=== PATIENT | female | born 1990 | race Caucasian/White ===

== ENCOUNTER 2021-10-08 07:11 | Outpatient (CLI) | payer BC, SELFPAY ==
--- NOTE | 2021-10-08 07:15 | CRLHL7_ITS ---
For Patients: As a result of the Century Cures Act, medical imaging exams and procedure reports are released immediately into your electronic medical record. You may view this report before your referring provider. If you have questions, please contact your health care provider. INDICATION: Evaluate anatomy. COMPARISON: 08/02/2021 TECHNIQUE: Real time flores scale imaging of the fetus was performed as well as color Doppler analysis of the umbilical vessels. FINDINGS: Sonographic imaging demonstrates a single living intrauterine gestation. Fetus demonstrates a regular cardiac rate of 149 beats per minute. Fetus has a vertex position. The placenta lies anteriorly. Circumvallate placenta noted inferiorly. The edge of the placenta is located 1.7 cm from the internal cervical os. Amniotic fluid volume appears normal. Single deepest vertical pocket: 4.3 cm. The cervix is closed and measures 4.4 cm in length. The composite ultrasound gestational age is calculated at 21 weeks 0 days with an estimated sonographic due date of 02/18/2022. The estimated weight is 385 grams which lies at the 64th %. The following biometric measurements were obtained: Biparietal diameter: 5.0 cm/21 weeks 0 days 68th% Head circumference: 19.0 cm/21 weeks 2 days 73rd% Abdominal circumference: 16.4 cm/21 weeks 3 days 72nd% Femur length: 3.3 cm/20 weeks 1 day 27th% The HC/AC ratio measures: 1.16 range (1.06-1.25) On anatomic survey, there is a normal appearance of the cerebral ventricles, cavum septi pellucidi, cisterna magna and cerebellum. Incomplete visualization of the nose, lips and nasal bone due to position. The cervical, thoracic and lumbar spine are well visualized and appear normal. Incomplete visualization of the four-chamber heart view and the left and right ventricular outflow tracts due to position. The diaphragm and stomach appear normal. The kidneys and bladder also appear normal. There is a normal three-vessel cord and cord insertion site. The four extremities appear normal. IMPRESSION: Incomplete visualization of the heart, nose, lips and nasal bone due to position. Short-term follow-up recommended. Anterior placenta with circumvallate morphology inferiorly. Placenta is low lying with the edge of the placenta 1.7 cm from the internal cervical os. Sonographic gestational age 21 weeks 0 days and sonographic due date of 02/18/2022. Estimated weight 64th percentile. Dictated by Guanakito Dunn MD @ 10/08/2021 9:11:58 AM (Electronically Signed)
== END 2021-10-08 07:12 | disposition home or self-care (01) ==
LOC: US 07:13
PROVIDERS: Visit Provider Advanced Practice Midwife
DX: Z34.92 Encounter for supervision of normal pregnancy, unspecified, second trimester (principal); O44.42 Low lying placenta NOS or without hemorrhage, second trimester; O35.8XX0 Maternal care for other (suspected) fetal abnormality and damage, not applicable or unspecified; Z3A.21 21 weeks gestation of pregnancy
CPT/HCPCS: 76805; 76817

== ENCOUNTER 2021-10-22 07:15 | Outpatient (CLI) | payer BC, SELFPAY ==
--- NOTE | 2021-10-22 07:15 | US_ITS ---
Final Report Patient: DINO LEMOS Facility:?[facility] Patient ID:?[id number] Site Patient ID:?[id number] Site :?[id number] Study:?US OB Pelvis -10/22/2021 8:13:00 AM Ordering Physician:Lucas Lundy Final Report: INDICATION: Follow-up views on FAS. TECHNIQUE: Ultrasound OB pelvis with transabdominal ultrasound. Real-time flores-scale imaging of the fetus was performed without stress testing. COMPARISON: Ultrasound 10/08/2021. FINDINGS: Sonographic imaging demonstrates a single living intrauterine gestation. Fetus demonstrates a regular cardiac rate of 144 beats per minute. Fetus has a vertex orientation. Amniotic fluid volume is normal, single deepest pocket measuring 3.8 cm. Placenta is anterior with margin 4.2 cm from the internal os. Heart, nose/lips, and profile views are within normal limits. IMPRESSION: heart, nose/lips, and profile views are within normal limits. Dictated by Hardeep Montesinos MD @ 10/22/2021 8:39:59 AM (Electronic Signature)
== END 2021-10-22 07:16 | disposition home or self-care (01) ==
PROVIDERS: Visit Provider Obstetrics & Gynecology
DX: Z34.90 Encounter for supervision of normal pregnancy, unspecified, unspecified trimester (principal)
CPT/HCPCS: 76816

== ENCOUNTER 2021-12-05 08:43 | Outpatient (CLI) | payer BC, SELFPAY ==
[2021-12-07 17:33] LABS: Rapid Plasma Reagin (RPR) Non Reactive (Non Reactive)
== END 2021-12-05 08:44 | disposition home or self-care (01) ==
LOC: NFLDREF 14:36
PROVIDERS: Visit Provider Obstetrics & Gynecology
DX: Z34.93 Encounter for supervision of normal pregnancy, unspecified, third trimester (principal); Z3A.28 28 weeks gestation of pregnancy
CPT/HCPCS: 86592

== ENCOUNTER 2021-12-28 08:14 | Outpatient (CLI) | payer BC, SELFPAY ==
--- NOTE | 2021-12-28 08:15 | CRLHL7_ITS ---
For Patients: As a result of the Century Cures Act, medical imaging exams and procedure reports are released immediately into your electronic medical record. You may view this report before your referring provider. If you have questions, please contact your health care provider. INDICATION: Third trimester scan, evaluate growth. Gestational diabetes. COMPARISON: 10/08/2021 TECHNIQUE: Real time flores scale imaging of the fetus was performed. FINDINGS: Sonographic imaging demonstrates a single living intrauterine gestation. Fetus demonstrates a regular cardiac rate of 148 beats per minute. Fetus has a vertex position. The placenta lies anteriorly. Amniotic fluid volume appears normal and there is a single deepest vertical pocket: 5.1 cm. The estimated weight is 1883gm which lies at the 35th %. On the prior OB ultrasound exam dated 10/08/2021 the estimated weight was at the 64th%. BPD 92nd percentile. HC 80th percentile. AC 26th percentile. FL 25th percentile. The HC/AC ratio measures 1.14 range (0.96-1.11). IMPRESSION: Sonographic gestational age 33 weeks 0 days and sonographic due date of 02/15/2022. Sonographic age is 6 days ahead of the clinical age. Estimated weight 35th percentile. Abdominal circumference 26th percentile. Dictated by Guanakito Dunn MD @ 12/28/2021 11:14:03 AM (Electronically Signed)
== END 2021-12-28 08:15 | disposition home or self-care (01) ==
LOC: US 08:15
PROVIDERS: Visit Provider Obstetrics & Gynecology
DX: O24.419 Gestational diabetes mellitus in pregnancy, unspecified control (principal); Z3A.32 32 weeks gestation of pregnancy
CPT/HCPCS: 76816

== ENCOUNTER 2022-01-24 09:47 | Outpatient (CLI) | payer BC, SELFPAY ==
[2022-01-25 10:34] LABS: Strep B DNA Probe NEGATIVE (Negative)
== END 2022-01-24 09:48 | disposition home or self-care (01) ==
LOC: NFLDREF 09:47
PROVIDERS: Visit Provider Obstetrics & Gynecology
DX: O24.419 Gestational diabetes mellitus in pregnancy, unspecified control (principal); Z3A.37 37 weeks gestation of pregnancy
CPT/HCPCS: 76816; 87081; 87653

== ENCOUNTER 2022-02-14 10:54 | Outpatient (CLI) | payer BC, SELFPAY ==
--- NOTE | 2022-02-14 11:15 | CRLHL7_ITS ---
For Patients: As a result of the Cures Act, medical imaging exams and procedure reports are released immediately into your electronic medical record. You may view this report before your referring provider. If you have questions, please contact your health care provider. INDICATION: Obstetrical ultrasound for interval growth. TECHNIQUE: Transabdominal obstetrical ultrasound. COMPARISON: January 14, 2022. FINDINGS: Single living intrauterine in vertex presentation. Anterior placenta. heart rate 123 beats per minute. Amniotic fluid volume normal. Single deepest pocket measurement 2.8 cm. The head measurements were unable to be obtained secondary to a low position. Abdominal circumference 32.2 cm, 37 weeks 1 day, 20th percentile. Femur length 7.2 cm, 36 weeks 5 days, 9th percentile. Estimated weight 3115 g which lies the 23rd percentile. age by ultrasound 37 weeks 0 days with a sonographic due date of March 07, 2022. IMPRESSION: Incomplete biometric indices due to a low position of the head. Limited composite calculated ultrasound measurements indicated 37 week gestation with an estimated due date of March 07, 2022. Dictated by Marco Antonio Valera MD @ 02/14/2022 12:46:14 PM (Electronically Signed)
== END 2022-02-14 10:55 | disposition home or self-care (01) ==
LOC: US 10:54
PROVIDERS: Visit Provider Obstetrics & Gynecology
DX: O36.5930 Maternal care for other known or suspected poor fetal growth, third trimester, not applicable or unspecified (principal); Z3A.36 36 weeks gestation of pregnancy
CPT/HCPCS: 76816

== ENCOUNTER 2022-02-18 04:57 | Inpatient (IN) | payer BC, SELFPAY ==
[2022-02-18] VITALS (13 sets, daily range): BP systolic 104–130; BP diastolic 56–74; PULSE 66–90; RESP 16; TEMP 36.6–37.4; O2SAT 98
--- NOTE | 2022-02-18 05:36 | P.LDBA_ITS ---
Subjective History of Present Illness Date Seen: 02/18/22 Narrative: Patient is being admitted to Labor and Delivery for labor. She is a 31 year old at 38 weeks, 4 days gestation. She presented to center this morning in active labor. OB Problem List: 1. Low lying anterior circumvallate placenta, 1.7 cm from cervical os * Follow-up scan done 10/22/2021, placental edge? 4.2 cm from internal os.?RESO LVED! 2. On anatomy scan 10/08/2021, heart, nose/lips, and profile not well seen. * Follow-up scan done 10/22/2021, heart, nose/lips, profile anatomy normal.? Placental edge? 4.2 cm from internal os. 3. GDMA1 * 1 hour glucose screen on 12/05/2021 = 197.? Diabetes Education/nutrition counseling referrals entered.? Importance of good glycemic control and risks of control diabetes reviewed with patient.? Discussed management of gestational diabetes. * 12/20/2021:? Good blood glucose control on diet alone. * 12/28/2021: Continues to do well with diet. * 32 week growth ultrasound 12/28/21: Vertex, SDP:5.1cm, EFW: 35%. * USN for EFW @ 36wks: Vertex, SDP: 5.0cm, BPD: 86%, HC: 57%, AC: 17%, FL: 5%., EFW: 21% * USN at 39wks due to measuring small for dates: Head to low to measure but other measurements: AC 19.8%, FL 8.9%. SDP 2.8cm. COVID:? Not vaccinated Flu shot: declined on 01/10/22 Tdap:declined on 01/10/22 Her full history and physical was dictated by Dr. Luong on 04/02/21. Please see this for details. OB - H&P: Exam Physical Exam: Vital signs: Pulse BP 66 130/71 02/18/22 04:48 02/18/22 04:48 Narrative: Physical exam: General: No acute distress Psych: Alert and oriented x3, full affect HEENT: Normocephalic, atraumatic Neck: No cervical adenopathy, no thyromegaly Heart: Regular rate and rhythm, no murmur rub or gallop Lungs: Clear to auscultation bilaterally Abdomen: Gravid Skin: No lesions or rashes Lower extremities: No edema or erythema Cervical exam per RN: 6 cm at admit, soon changing to 7 cm. 100%, +1 station. Intact . heart rate: baseline 130 / accels present / moderate variability / no d ecels in 8 minute strip OB - Problem Based A/P Additional Plan (1) Gestational diabetes: Status: Acute Plan: 31 yo at 38 4/7 weeks in active labor. GDMA1 Reasurring status GBS negative Plan Repeat blood sugar. Delivery/Labor/Induction Plan Plan: expectant management
--- NOTE | 2022-02-18 07:01 | PM.OBPRCVD ---
Procedure Delivery date: 02/18/22 Procedure Done: Global Procedure Details: The patient is a 31 year-old G 1 P 0 woman admitted on 02/18/2022 at 38 Weeks, 4 Days gestation for active labor.? Cervical exam on admission was 6 cm/100 % effaced/+1 station with membranes intact in vertex presentation.? Contractions were regular.? heart rate demonstrated baseline 130 bpm with moderate variability, positive accelerations, no decelerations; a category 1 tracing.? SROM occurred at 6:01 a.m. with clear fluid. ? Labor Analgesia:? None ? Pitocin:? No ? Labor onset:? Midnight ? Complete:? 6:10 a.m. ? Pushing:? 6:10 a.m. ? heart tones during second stage were reassuring. ? At 6:30 a.m. a viable male infant delivered in vertex DENIZ presentation over intact perineum via spontaneous vaginal delivery.? Infant was placed on maternal abdomen.? Cord was clamped and cut after a 60+ second delay.? Nose and mouth were bulb suctioned.? Infant weight pending.? 8 at 1 minute and 9 at 5 minutes.? Shoulder dystocia: No.? Nuchal cord: No. ? Placenta delivered spontaneously and complete at 6:39 a.m. with a 3 vessel cord. ? Mother and infant were stable after delivery. ? Lacerations:? Bilateral periurethral, repaired with 5 interrupted sutures of 3-0 Vicryl after infiltration with 10 mL of 1% lidocaine. ? Blood loss: 150 mL. Blood loss measurement type: EBL ? Sponge and needles counts are correct.
--- NOTE | 2022-02-18 08:33 | PC.NURSE ---
0506 Blood sugar check: 126 Patient educated that based on blood sugar, recommendations are for insulin therapy. Pt has not eaten since 2100 last night. Has only had water throughout labor at home. Educated on stress response from labor but blood sugar still elevated. Pt declines IV and insulin and would like blood sugar re-checked shortly to see if it can decrease. Educated to continue to drink water for hydration. Will notify MD on arrival to unit of patients refusal and plan made with patient. 0555 Blood sugar recheck 137. Patient educated by [place] of risks/benefits to having insulin therapy to treat hyperglycemia. Pt aware it would be an IV start and insulin through IV. Patient aware it will take time to arrive from pharmacy. Pt agrees to start of IV and insulin. Requests to have labor re-assessed prior to start of IV and insulin infusion to ensure it is necessary or if delivery is imminent given how quickly her labor is progressing. Maria Victoria Avila RNC
[2022-02-18 08:43] LABS: SARS PCR* Negative SARS-CoV-2 (Negative)
[2022-02-19 01:42] VITALS: BP 113/70; PULSE 80; RESP 16; TEMP 36.4; O2SAT 100
[2022-02-19 05:06] VITALS: BP 112/61; PULSE 79; RESP 16; TEMP 36.6; O2SAT 99
[2022-02-19 06:55] LABS: Hemoglobin* 11.6 gm/dL (12.0-16.0)
[2022-02-19 08:21] VITALS: BP 115/79; PULSE 79; RESP 16; TEMP 36.5; O2SAT 99
--- NOTE | 2022-02-19 09:57 | P.DS_ITS ---
DS: Providers Provider Date Seen: 02/19/22 Date of admission: 02/18/22 04:57 Primary care physician: Not a Local Provider Admitting Clinician: Heather Dia MD Attending Physician on discharge: Kanchan Serrano CNM DS: Diagnosis Discharge Diagnosis (1) care and examination immediately after delivery: Status: Acute (2) History of gestational diabetes: Status: Acute Problem details: diet controlled (3) Lactating mother: Status: Acute Exam 2 Const: Vital Signs, click to edit/add: Vital Signs - 24 hr 02/18/22 11:09 02/18/22 16:31 02/18/22 19:55 Temperature 99.3 F 99.1 F 98.6 F Pulse Rate [Pulse Oximeter] 85 83 76 Respiratory Rate 16 16 16 Blood Pressure [Le ft Arm] 104/65 113/74 105/65 Pulse Oximetry 98 98 98 Oxygen Delivery Me thod Room Air Room Air Room Air 02/19/22 01:42 02/19/22 05:06 02/19/22 08:21 Temperature 97.6 F 97.8 F 97.7 F Pulse Rate [Pulse Oximeter] 80 79 79 Respiratory Rate 16 16 16 Blood Pressure [Le ft Arm] 113/70 112/61 115/79 Pulse Oximetry 100 99 99 Oxygen Delivery Me thod Room Air Room Air OB - DS: Summary Hospital Course Hospital Course: The patient is a 31 year old G [] P [] at [] weeks gestation that was admitted to the Center on 02/18/22 for []. She had an [uncomplicated/complicated] [vaginal/] delivery. She delivered a viable [male/female] . She is [breast/bottle] feeding. the patient has done well. Infant Gender: Male Time Spent with Patient Time attestation: Total time spent providing and/or coordinating discharge services: Discharge Plan Discharge Disposition: Home, Self-Care Date of Admission: 02/18/22 04:57 Attending Provider on Discharge: Kanchan Serrano Primary Care Provider: Provider,Not a Local Condition: Stable Anticipated Discharge Date/Time: 02/19/22 09:07 Discharge Medications: New acetaminophen 500 mg Tablet 1,000 mg PO Q6H PRN (Reason: pain/fever) Qty: 0 0RF docusate sodium 100 mg Capsule 100 mg PO DAILY Qty: 0 0RF ibuprofen 600 mg Tablet 600 mg PO Q6H PRNQty: 0 0RF Continued -lsbz fum-folic ac-om3 [id number] mg-mcg-mg combo pack PO Discontinued (DME) Blood Glucose Meter Misc See Rx Instructions .MEDSUPPLY Qty: 1 0RF Rx Instructions: As directed (DME) lancets Misc See Rx Instructions .MEDSUPPLY Qty: 100 3RF Rx Instructions: Test blood sugar 4 times daily. (DME) Test Strips Misc See Rx Instructions .MEDSUPPLY Qty: 100 3RF Rx Instructions: Test blood sugar 4 times daily. Discharge Orders: Discharge Order (Routine); Ordered 02/19/22 Ordered By: Kanchan Serrano Patient Education: OB Over the Counter Medication Information, OB Vaginal/Breast Feeding Additional Instructions: Discharge instructions were reviewed with the patient including signs and symptoms of infection and home going medications Nothing vaginally for 6 weeks: no tampons or intercourse Off Work or School for 6 weeks 2-week visit: discuss feeding concerns, review control options and screen for anxiety/depression. 6-week visit for an annual exam. Follow-up for gestational diabetes with 2 hour glucose screening at this visit. consultation services are available to all mothers and babies for the first year after delivery.? To make an appointment, please call [phone]. Activity Level: No Restrictions Discharge Diet: Regular Follow Up Appointments: [facility] [Provider Group] (2 week 6 week with 2 hour glucose challenge test) Forms: [employer] Info Instructions
== END 2022-02-19 11:30 | disposition home or self-care (01) | DRG 560 ==
LOC: OB OUT 05:12 → OB 05:12
PROVIDERS: Admitting Provider Obstetrics & Gynecology; Visit Provider Obstetrics & Gynecology
DX: O24.420 Gestational diabetes mellitus in childbirth, diet controlled (principal); O71.82 Other specified trauma to perineum and vulva; Z3A.39 39 weeks gestation of pregnancy; Z37.0 Single live birth
CPT/HCPCS: 36415; 82962; 85018; 87635

== ENCOUNTER 2024-05-31 09:19 | Outpatient (CLI) | payer BC, SELFPAY ==
--- NOTE | 2024-05-31 10:45 | CRLHL7_ITS ---
For Patients: As a result of the Cures Act, medical imaging exams and procedure reports are released immediately into your electronic medical record. You may view this report before your referring provider. If you have questions, please contact your health care provider. INDICATION : Early viability TECHNIQUE : Obstetrical ultrasound transabdominal grayscale and color Doppler. FINDINGS : Intrauterine : Single fetus. Single gestation. Comstock-rump length 6.2 cm. Sonographic age 12 weeks 4 days. Estimated delivery date by ultrasound 12/09/2024 Cardiac activity: Present 104 beats per minute. Gestational sac: 5.4 centimeters. Adnexal regions: Corpus luteum right ovary. Left ovary unremarkable. IMPRESSION : Early intrauterine sonographic age 12 weeks and 4 days, no visualized abnormalities. Dictated by Ayo Ochoa MD @ 05/31/2024 12:37:53 PM (Electronically Signed)
== END 2024-05-31 09:20 | disposition home or self-care (01) ==
PROVIDERS: Visit Provider Advanced Practice Midwife
DX: Z34.91 Encounter for supervision of normal pregnancy, unspecified, first trimester (principal); Z3A.12 12 weeks gestation of pregnancy
CPT/HCPCS: 76801; 83020; 83021; 85660; 86592; 86703; 86704; 86706; 86762; 86787; 86803; 86850; 86900; 86901; 87086; 87340

== ENCOUNTER 2024-07-26 10:00 | Outpatient (CLI) | payer BC, SELFPAY ==
--- NOTE | 2024-07-26 10:15 | US_ITS ---
Patient: DINO LEMOS Facility:?[facility] Patient ID:?[id number] Site Patient ID:?[id number]. Site :?1990 Study:?US-OB Pelvis Anatomy-07/26/2024 11:15:35 AM Ordering Physician:Adalberto Raymundo Final Report: ADDENDUM: Please disregard original report. Final report is as follows: FINAL REPORT OB ULTRASOUND ANATOMY SURVEY CORNELL by US: 12/13/2024. GA: 20 w, 0 d. INDICATION: screen. TECHNIQUE: Real time flores scale imaging of the fetus was performed. Transabdominal. position: Vertex. Cervix: Visualized. Technique: Transabdominal. Length of closed cervix: 2.7 cm. Placenta/cord: Posterior. Placenta tip to internal OS: 1.85 cm. Umbilical Cord: 3-vessel cord. Placenta insertion: Central. Amniotic Fluid: 5.1 cm SDP (greater than/equal to: 2- less than 8 cm). SURVEY: Observed Structures. Calvarium/Spine: Cerebellum: 2.2 cm, 21 w 5 d. Cisterna Magna: 3.7 mm. Nuchal Fold: 3.6 mm. Lateral Ventricle: 5.2 mm. CSP: Yes. Midline Falx: Yes. Choroid Plexus: Yes. Spine: Yes. Abdomen: Stomach: Yes. Abd Cord Insertion: Yes. Urinary Bladder: Yes. Kidneys: Yes. Diaphragm: Yes. Face: Nose/lips: Yes. Orbital view: Yes. Profile: Yes. Limbs: Upper Extremities: Yes. Lower Extremities: Yes. Hands: Yes. Feet: Yes. Vascular: 4-Chamber Heart: Yes. LVOT: Yes. RVOT: Yes. 3VV: Yes. 3VTV: Yes. BPD: 5.0 cm. 21 w, 0 d, 87 percent. HC: 17.8 cm. 20 w, 2 d, 56 percent. AC: 16.0 cm. 21 w, 0 d, 78 percent. FL: 3.2 cm. 20 w, 0 d, 42 percent. FL/AC ratio: 20.13 percent. HC/AC ratio: 1.12. heart rate: 144 bpm. age by this US: 20 w, 6 d. CORNELL by this US: 12/07/2024. EFW: 362 g. Weight: - lbs, 13 oz. Percentile by CORNELL: 77 percent. IMPRESSION: Normal anatomy. Guanakito Dunn M.D. Diagnostic Radiologist [email or web address] LUZ MARINA/sp D& Transcribed: 5:05 p.m. (Electronic Signature)
== END 2024-07-26 10:01 | disposition home or self-care (01) ==
LOC: US 10:00
PROVIDERS: Visit Provider Advanced Practice Midwife
DX: Z34.92 Encounter for supervision of normal pregnancy, unspecified, second trimester (principal); Z3A.20 20 weeks gestation of pregnancy
CPT/HCPCS: 76805

== ENCOUNTER 2024-11-17 09:35 | Outpatient (CLI) | payer BC, SELFPAY | END 2024-11-17 09:36 | disposition home or self-care (01) | LOC: NFLDREF 11-22 18:24 | PROVIDERS: Visit Provider Advanced Practice Midwife | DX: Z34.93 Encounter for supervision of normal pregnancy, unspecified, third trimester (principal); Z3A.36 36 weeks gestation of pregnancy | CPT/HCPCS: 87081; 87653 ==

== ENCOUNTER 2024-11-30 01:54 | Inpatient (IN) | payer BC, SELFPAY ==
[2024-11-30] VITALS (17 sets, daily range): BP systolic 80–118; BP diastolic 47–80; PULSE 58–90; RESP 16–18; TEMP 36.6–37.2; O2SAT 97–100
--- NOTE | 2024-11-30 03:10 | W.PM.VAGDE_ITS ---
OB Procedure Vag Delivery Mother Details Mother Details: The patient is a 34 year-old, 2, Para 2, admitted on 11/30/24 at 38.1 Days gestation. : 2 Para: 2 Weeks Gestation: 38.1 Admission Date: 11/30/24 Additional Details Amniotic Membrane Status: SROM Amniotic Membrane Rupture Date: 11/30/24 Amniotic Membrane Rupture Time: 01:20 Amniotic Membrane Fluid Description: Clear Analgesia/Anesthesia Type: None Waterbirth: Yes Pitcoin: No Intrapartal Events: Precipitous Labor <3 Hrs Labor Onset: 00:00 Complete: 02:00 (presumed with spontaneous pushing) Pushin:00 Heart: heart tones during second stage were not well traced. No decreased heard or traced but tracing was intermittent due to rapid descent and maternal and positioning. Delivery Details Delivery Date: 11/30/24 Delivery Time: 02:13 Route of delivery: Infant Gender: Female Infant Viability: Alive; Heart Rate Present Position at Delivery: Breech Delivery Details: Patient was admitted for spontaneous labor and SROM and progressed normally. SR OM noted at 0120 with clear fluid. Patient was presumed complete with spontaneous pushing at 0200. of a viable female at 0213 while standing in the tub. Vertex delivered so breech. Breech was identified with presentation of the butt as no previous SVE had been performed. On identification the mother was instructed to stand which she did immediately. I had encouraged her to get out of the tub but she was unable to due to time and descent. After she stood the legs came out as the butt delivered further. I then grasped the body to help guide and support the rest of the body. The arms were above the body but did deliver before the delivery of the head. The head then delivered with a small amount of gentle traction. A cord white was called after breech presentation was identified but was called off after delivery of the baby. No nuchal cord or shoulder. Infant passed through the legs and to mothers abdomen with a vigorous cry. Cord was clamped and cut at > 5 minutes. APGARS were 8 at one minute and 9 at five minutes respectively. Mouth was bulb suctioned. Intact placenta with a 3 vessel cord delivered spontaneously at 0237. She declined AMTSL and Pitocin administration. Fundus firm. Intact perineum identified with a small periurethral tear was noted but repair not needed. After delivery of the placenta the QBL was noted to be 700mL. We reviewed that Pitocin would be encouraged with this QBL to prevent further bleeding and reaching a PPH. Reviewed the risks and benefit and she again declined. The RN then informed me that there had been some continued blooding, that QBL had increased to 900mL, her blood pressure had decreased and she was feeling lightheaded. On assessment she was pale but stated that she felt better after she was laying down. We again reviewed medications to decrease her bleeding including IM Pitocin, PO or rectal Cytotec, and TXA. She had lots of questions about the risks of not treating and I reviewed this along with my concern for her continued bleeding and her health and safety. Had lots of concerns for effects of any of these on baby so also reviewed risk for decreased milk supply with PPH. With a vigorous fundal massage a very large clot was expressed. We reviewed that although this will help with her bleeding the risk of it reoccurring without intervention was increased. She did agree to Cytotec and agreed to rectal Cytotec so that it would work quicker. QBL 1685 mL in the drape as well as measured pads. Bleeding remained stable through the rest of the recovery period after the Cytotec administration. Mother and baby stable; mother plans to breastfeed. weight pending. 1 Minute Interval Total Score: 8 5 Minute Interval Total Score: 9 Additional Details Shoulder Dystocia: No Placenta Delivery Time: 02:37 Placental Delivery Description: Spontaneous Procedure Done: Global Blood Loss: 1,685 Laceration: None Episiotomy Description: None Blood Loss Measurement Type: QBL Bakri Used: No Sponge/Need Count Correct: Yes Cord Vessel Description: 3 Vessels Event Summary Status: Mother and infant were stable after delivery. Disposition: floor
--- NOTE | 2024-11-30 03:10 | W.PM.LDBA ---
Subjective History of Present Illness Date Seen: 11/30/24 Narrative: Patient is being admitted to Labor and Delivery for spontaneous labor. She is a 34 year old at 38.1 weeks gestation. Her full history and physical was dictated by Maria Victoria Younger CNM on 11/26/24. Please see this for details. SROM with clear fluid just before arrival. Contractions started last night around 2300 and built in frequency and intensity until arrival. She was feeling pressure and a slight urge to push upon arrival. The RN did get her into the tub before initiating monitoring and she declined to get out once she entered the tub. FHR tracing was initiated while in the tub. A reactive FHR tracing and a SVE were not obtained before she entered the tub. She vocalized frustration that the requirement for a FHR tracing was stalling her labor and was very disruptive. Reminded her that part of the consent that she signed for a water stated that she agreed to a FHR tracing before getting into the tub. Since this was not done, it was necessary at this time to keep her and her baby safe. Declining GBS prophylactic treatment. Reviewed that although it is still recommended, given that delivery is likely imminent that would be unlikely to have time to fully treat. Discussed that if delivery doesn't happen soon she should reconsider treatment as the longer she is ruptured the greater the chance of infection if untreated. Specific Issues/Plans G2 P 1 Partner: Kash? H&P completed by Rich RODRIGUEZ on 11/26/2024? # Hx GDMA1 A1c 5.3 at NOB Declined 1 hour gct but is agreeable to 1 week of home testing 10/04/24: QID glucose checks x 1 weeks all normal with fastings ranging 85-92 and postprandials 76-119. (Record sent to scanning.) # BMI at NOB 17.8. Still -discussed impacts on BMI with and if unable to gain weight may consider stopping. ? # tandem nursing consultation p.r.n. # Fast first labor, please notify JENNIFER when patient on way in Arrived at 7 cm with 1st baby, plans to labor at home as long as she can with this one Imaging:? 1st trimester: Early intrauterine sonographic age 12 weeks and 4 days, no visualized abnormalities. Dictated by Ayo Ochoa MD @ 05/31/2024 ?? Anatomy scan: Normal anatomy. 07/28/2024?? Others: []? COVID: Flu: TDAP: Declines 32wk Mental Health: 34wk Hgb: Pap due PP OB - Problem Based A/P Additional Plan (1) Pain during labor: Status: Acute (2) Lactating mother: Status: Acute (3) Positive GBS test: Status: Acute Plan ASSESSMENT:? at 38.1 weeks gestation? GBS positive? Uncomplicated ? Labor type: spontaneous, active labor Blood type: B+? ?? PLAN:? 1. Antibiotic prophylaxis treatment per protocol?recommended. Declining treatment. Reviewed that if delivery does not occur imminently, she should consider antibiotics. 2.Desires water . Consent signed. Hep C negative.? 3. Candidate for analgesia of choice. Planning unmedicated .? 4. Anticipate ? 5. Expectant management at this time.? 6. Obtain reactive FHR tracing then can change to intermittent auscultation. Delivery/Labor/Induction Plan Plan: expectant management OB Result Labs Blood Type: B (+) positive Rubella: immune RPR/VDLR: nonreactive GBS Status: positive HBsAG: negative OB Exam Physical Exam Vital signs: Pulse BP 90 102/60 11/30/24 03:09 11/30/24 03:09 Narrative: Psychiatric:? Alert and oriented x3? HEENT:? Normocephalic, atraumatic? Neck:? Supple without adenopathy or thyromegaly? Lungs:? Clear to auscultation bilaterally? Heart:? Regular rate and rhythm, no murmur, rub or gallop? Abdomen:? Soft, nontender, and gravid? Extremities:? No edema or erythema? SVE: not done before entering the tub and declined when in the tub Detailed Labor and Delivery Exam Patient Gravid: yes Contraction Frequency: 2-3 Contraction intensity: Strong/Firm Fetus (Single) Amniotic Membrane Status: SROM Amniotic Membrane Fluid Description: Clear Heart Rate Baseline: 125 (minimal tracing obtained and difficult to trace )
[2024-11-30 03:24] LABS: Hematocrit 32.5 % (33.0-51.0); Hemoglobin* 11.1 gm/dL (12.0-16.0); Immature Granulocytes Pct Auto 0.9 %; Mean Corpuscular HGB Conc 34 gm/dL (32-36); Mean Corpuscular Hemoglobin 32 pg (26-34); Mean Corpuscular Volume 93 fL (80-100); RDW Coefficient of Variation % 12.7 % (11.5-15.5); Red Blood Count 3.50 m/uL (4.00-5.20); White Blood Count* 13.16 K/uL (4.50-11.00)
[2024-11-30 03:31] LABS: Immature Granulocytes Abs Auto 0.10 K/uL (0.00-0.30); Lymphocytes Absolute Auto 1.10 K/uL (0.90-2.90); Slide Review Reflex No
[2024-11-30] MEDS: miSOPROStoL 800 MCG/4 TABLET PR (03:32)
--- NOTE | 2024-11-30 03:41 | PM.OBPNVD1 ---
OB - PN: Obj Exam Physical Exam: Vital signs: Pulse BP 72 93/56 L 11/30/24 03:39 11/30/24 03:39 OB - PN: Obj Data Labs Labs: Laboratory Results - last 24 hr 11/30/24 03:15 WBC 13.16 H RBC 3.50 L Hgb 11.1 L Hct 32.5 L MCV 93 MCH 32 MCHC 34 RDW Coeff of Pita 12.7 Plt Count 204 Neut % (Auto) 87.0 H Lymph % (Auto) 8.7 L [place] % (Auto) 3.0 Eos % (Auto) 0.3 Baso % (Auto) 0.1 Neut # (Auto) 11.40 H Lymph # (Auto) 1.10 [place] # (Auto) 0.40 Eos # (Auto) 0.00 Baso # (Auto) 0.00 Abs Immat Gran (auto) 0.10 Imm/Tot Granulo (auto) 0.9
[2024-11-30 16:32] LABS: Hemoglobin* 10.2 gm/dL (12.0-16.0)
--- NOTE | 2024-11-30 19:22 | P.DS_ITS ---
DS: Providers Provider Date Seen: 11/30/24 Date of admission: 11/30/24 01:54 Primary care physician: Not a Local Provider Admitting Clinician: Breanne Boo CNM Attending Physician on discharge: Kanchan Serrano CNM Date of Discharge: 11/30/24 DS: Diagnosis Discharge Diagnosis (1) care and examination immediately after delivery: Status: Acute (2) Lactating mother: Status: Acute (3) Lactating mother: Status: Acute Exam Narrative: Exam Narrative: GENERAL APPEARANCE:? normal affect, alert, no distress MOOD:? appropriate BREASTS: decline assessment CHEST:? clear to auscultation HEART:? regular rate and rhythm ABDOMEN:? soft, non-tender the uterine fundus is At Umbilicus, Midline and is appropriate for the stage of recovery. PERINEUM:? declined assessment, no tear with EXTREMITIES:? normal and no edema Const: Vital Signs, click to edit/add: Vital Signs - 24 hr 11/30/24 02:39 11/30/24 02:54 11/30/24 03:09 Temperature Pulse Rate 78 89 90 Pulse Rate [Pulse Oximeter] Respiratory Rate Blood Pressure 117/59 L 118/63 102/60 Blood Pressure [Ri ght Arm] [facility] 03:21 11/30/24 03:24 11/30/24 03:28 Temperature Pulse Rate 64 82 81 Pulse Rate [Pulse Oximeter] Respiratory Rate Blood Pressure 80/47 L 84/49 L 91/54 L Blood Pressure [Ri ght Arm] Pulse Oximetry [facility] 11/30/24 03:39 11/30/24 03:54 11/30/24 04:01 Temperature Pulse Rate 72 58 L 71 Pulse Rate [Pulse Oximeter] Respiratory Rate Blood Pressure 93/56 L 87/51 L 90/53 L Blood Pressure [Ri ght Arm] Pulse Oximetry [facility] 11/30/24 04:09 11/30/24 04:24 11/30/24 04:39 Temperature Pulse Rate 72 71 64 Pulse Rate [Pulse Oximeter] Respiratory Rate Blood Pressure 94/50 L 101/56 L 103/60 Blood Pressure [Ri ght Arm] Pulse Oximetry [facility] 11/30/24 04:54 11/30/24 07:40 11/30/24 12:12 Temperature 98.6 F 97.9 F Pulse Rate 72 Pulse Rate [Pulse Oximeter] 89 77 Respiratory Rate 16 18 Blood Pressure 117/58 L Blood Pressure [Ri ght Arm] 103/66 109/72 Pulse Oximetry 97 99 Oxygen Delivery Me thod Room Air Room Air 11/30/24 16:17 Temperature 98.9 F Pulse Rate Pulse Rate [Pulse Oximeter] 85 Respiratory Rate 16 Blood Pressure Blood Pressure [Ri ght Arm] 107/73 Pulse Oximetry 98 Oxygen Delivery Me thod Room Air OB - DS: Summary Hospital Course Hospital Course: Jimena is a 34 y.o. G 2 P 2 who was admitted to L & D for spontaneous labor. ?She had a NVD that was complicated by unknown breech presentation identified at time of delivery and PPH 1685. The patient feels well. ?The pain is well controlled with current medications. ?She has no new complaints. ?She is breast feeding and reports things are going well. the patient has done well.? Vitals have been stable.? She has remained afebrile.? Has a good appetite, is tolerating a general diet. ?She is voiding without difficulty.? She is passing gas and has not had a bowel movement.? She is ambulating and denies any dizziness.? Has small amount of rubra lochia. Patient has requested early discharge after being informed hospital policy would not allow her older child from staying overnight. Problems: denies Discharge home with baby.? Follow up in 2 weeks and 6 weeks.? , may see if needed? Hgb 10.2. Iron supplement ordered orally every other day, pt declines oral prescription for this For pain control of perineum, breast and pelvic pain, take 600 mg Ibuprofen kary ry 6 hours as needed by mouth or 1000 mg acetaminophen (Tylenol) every 6 hours by mouth as needed. You can alternate these so you are taking something every 3 hours as needed. A heating pad can also be used for your abdomen or breasts. You may also take docusate sodium up to twice daily to soften your stools and help to prevent constipation. You may wean off of it when your stools return to normal.? Peripartum Data Infant delivery method: Vaginal (Breech) Laceration description: None complications: none Infant Gender: Female Infant Discharge Plan: Home Status at Discharge Functional status at discharge: independent ambulation Overall status at discharge: patient is progressing back to baseline Time Spent with Patient Time attestation: Total time spent providing and/or coordinating discharge services: Time spent: Less than 30 minutes Discharge Plan Discharge Disposition: Home, Self-Care Date of Admission: 11/30/24 01:54 Attending Provider on Discharge: Kanchan Serrano Primary Care Provider: Provider,Not a Local Condition: Stable Anticipated Discharge Date/Time: 11/30/24 12:00 Discharge Medications: New docusate sodium 100 mg Capsule 100 mg PO DAILY Qty: 0 0RF ibuprofen 600 mg Tablet 600 mg PO Q6H PRNQty: 0 0RF acetaminophen 500 mg Tablet 1,000 mg PO Q6H PRN (Reason: pain/fever) Qty: 0 0RF Continued 75-iron [id number] mg-mcg-mg combo pack PO Discharge Orders: Discharge Order (Routine); Ordered 11/30/24 Ordered By: Kanchan Serrano Patient Education: OB Over the Counter Medication Information, OB Vaginal/Breast Feeding Additional Instructions: Discharge instructions were reviewed with the patient including signs and symptoms of infection and home going medications Nothing vaginally for 6 weeks: no tampons or intercourse Off Work or School for 6 weeks 2-week visit: discuss infant feeding concerns, review control options and screen for anxiety/depression. 6-week visit for an annual exam. consultation services are available to all mothers and babies for the first year after delivery.? To make an appointment, please call [phone]. Activity Level: Activity as Tolerated Discharge Diet: Regular Follow Up App[facility]ments: [facility] [Provider Group] [facility]: [facility]
== END 2024-11-30 23:19 | disposition home or self-care (01) | DRG 560 ==
LOC: OB OUT 01:54 → OB 01:54
PROVIDERS: Admitting Provider Advanced Practice Midwife; Visit Provider Advanced Practice Midwife
DX: O99.824 Streptococcus B carrier state complicating childbirth (principal); O62.3 Precipitate labor; O32.1XX0 Maternal care for breech presentation, not applicable or unspecified; O72.1 Other immediate postpartum hemorrhage; Z3A.38 38 weeks gestation of pregnancy; Z37.0 Single live birth
CPT/HCPCS: 36415; 85018; 85025; 86592; 86850; 86900; 86901; A9270